=== PATIENT | male | born 1960 | race Caucasian/White ===

== ENCOUNTER 2020-07-28 06:52 | Outpatient (CLI) | payer OTHER, SELFPAY ==
[2020-07-28 07:52] LABS: Anion Gap 9 mmol/L (8-16); Blood Urea Nitrogen 14 mg/dL (9-20); Calcium 9.3 mg/dL (8.4-10.2); Carbon Dioxide 30 mmol/L (22-30); Chloride 101 mmol/L (98-107); Cholesterol 219 mg/dL (0-200); Estimated Glomerular Filt Rate > 60; Glucose 111 mg/dL (75-110); HDL Direct 29 mg/dL; Potassium 3.7 mmol/L (3.4-5.0); Sodium 140 mmol/L (137-145); Triglycerides 199 mg/dL (<150)
[2020-07-28 08:03] LABS: LDL Cholesterol Direct 154 mg/dL
[2020-07-28 08:23] LABS: Prostate Specific Antigen 3.5 ng/mL (< OR = 4.0); Thyroid Stimulating Hormone 0.685 uIU/mL (0.465-4.680)
[2020-07-28 08:59] LABS: Basophils Absolute Auto 0.1 K/mm3 (0.0-0.1); Basophils Percent Auto 0.6 % (0.2-1.2); Eosinophils Absolute Auto 0.3 K/mm3 (0-0.3); Eosinophils Percent Auto 2.8 % (0-4.4); Hematocrit 48.1 % (42.0-52.0); Hemoglobin 16.2 g/dL (14.0-18.0); Immature Granulocyte Absolute 0.08 K/mm3 (0.00-0.031); Immature Granulocyte Percent A 0.9 % (0-0.5); Lymphocytes Absolute Auto 2.76 K/mm3 (0.9-3.2); Lymphocytes Percent Auto 29.6 % (18.3-44.2); Mean Corpuscular HGB Conc 33.7 g/dl (32-36); Mean Corpuscular Hemoglobin 29.6 pg (26-34); Mean Corpuscular Volume 87.9 fl (80-100); Mean Platelet Volume 10.4 fl (7.4-10.4); Monocytes Absolute Auto 0.8 K/mm3 (0.1-0.6); Monocytes Percent Auto 8.6 % (2.6-8.5); Neutrophils Absolute Auto 5.4 K/mm3 (1.3-6.7); Neutrophils Percent Auto 57.5 % (45.5-73.1); Platelet Count Result 268 k/mm3 (150-375); Red Blood Count 5.47 M/mm3 (4.6-6.20); Red Cell Distribution Width 12.4 % (11.5-14.5); White Blood Count 9.3 K/mm3 (4.5-10.0)
== END 2020-07-28 06:53 | disposition home or self-care (01) ==
LOC: ANHLAB 06:56
PROVIDERS: PCP Family Medicine; Visit Provider Family Medicine
DX: Z13.220 Encounter for screening for lipoid disorders (principal); I10 Essential (primary) hypertension; Z12.5 Encounter for screening for malignant neoplasm of prostate
CPT/HCPCS: 36415; 80048; 80061; 84153; 84443; 85025; G0103

== ENCOUNTER 2020-09-24 00:36 | Outpatient (CLI) | payer OTHER, SELFPAY ==
[2020-09-24 20:15] LABS: SARS-CoV-2 RNA PCR Negative
== END 2020-09-24 00:37 | disposition home or self-care (01) ==
LOC: ANHCOVIDDT 00:36
PROVIDERS: PCP Family Medicine; Visit Provider Internal Medicine Gastroenterology
DX: Z01.818 Encounter for other preprocedural examination (principal); Z20.828 Contact with and (suspected) exposure to other viral communicable diseases
CPT/HCPCS: 87635; C9803; U0003

== ENCOUNTER 2020-09-27 01:25 | Day surgery (SDC) | payer OTHER, SELFPAY ==
[2020-09-21 11:36] VITALS: BMI 30.4
[2020-09-27 08:00] VITALS: BP 137/85; PULSE 88; RESP 16; TEMP 36.3; O2SAT 97
[2020-09-27] MEDS: LACTATED RINGERS 1,000 ML 150 ML IV CONT (08:16)
--- NOTE | 2020-09-27 08:48 | WPDANESEPPF ---
Anes - Initial Pre Proc Eval Procedure: Operation Date: 09/27/20 09:30 Proposed Procedures p Screening Colonoscopy - Harsh Gonzales MD Date/Time: 09/27/20 08:48 Surgeon: Harsh Gonzales MD Pre Op Diagnosis: neoplasm screening Patient Data Age: 59 Gender: M Height: 5 ft 8 in Weight: 88 kg Last Vital Signs Temp 36.3 C L 09/27/20 08:00 Pulse 88 09/27/20 08:00 Resp 16 09/27/20 08:00 BP 137/85 09/27/20 08:00 Pulse Ox 97 09/27/20 08:00 Allergies Allergy/AdvReac Type Severity Reaction Status Date / Time No Known Allergies Allergy Verified 09/27/20 07:57 Home Medications Medication Instructions Recorded Confirmed Type amlodipine 5 mg tablet 5 mg PO DAILY #90 tablet 09/13/20 09/21/20 Rx lisinopril 10 mg tablet 10 mg PO DAILY #90 tablet 09/13/20 09/21/20 Rx rosuvastatin 20 mg tablet 20 mg PO DAILY #90 tablet 09/13/20 09/21/20 Rx Patient hx anesthesia problems: none Family hx anesthesia problems: none PMFSH Past Medical History Medical History BMI 29.0-29.9,adult Essential (primary) hypertension Screen for colon cancer Screening for lipid disorders Screening for prostate cancer Family History Family History Other Heart disease Social History Social History Smoking packs per day: 1 Smoking cigarettes per day: 20.0 Years smoked: 15 Smoking pack-years: 15.00 Smoking status: Never smoker Tobacco type: cigarettes Alcohol intake: never Substance use type: does not use Living arrangements: alone Spiritual care concerns: No Anes - Eval Final PreProcedure Day of Procedure 09/27/20 08:48 Patient weight: normal Heart: regular rate and rhythm Lungs: clear to auscultation Airway: Mallampati scale class II Neurological: alert and oriented Last oral intake: >/= 8 hours ASA classification: II Emergent: no Anesthetic plan: proceed Anesthesia type and monitoring: general GIVS and standard monitoring Informed Consent: The patient's anesthetic plan and its attendant risks and benefits were discussed with the patient/family/POA. Questions were solicited and answers provided to the satisfaction of the patient/family/POA.
--- NOTE | 2020-09-27 08:58 | PM.HPGS ---
History of Present Illness History of Present Illness Consent: Risks, benefits, and alternatives have been discussed and questions answered. Patient agrees to proceed with procedure. Chief complaint: neoplasm screening Narrative: Pollo Juan is a 59 year old male here for first screening colonoscopy Review of Systems Constitutional: Constitutional: Denies headache(s) and Denies weakness Eyes: Eyes: Denies blurry vision ENT: Reports Normal hearing present, Denies headache(s) and Denies neck pain Cardiovascular: Cardiovascular: Denies chest pain and Denies dyspnea Respiratory: Respiratory: Denies dyspnea Gastrointestinal: Gastrointestinal: Reports no additional gastrointestinal complaints Genitourinary: Genitourinary: Denies dysuria Musculoskeletal: Musculoskeletal: Denies neck pain Integumentary/Breasts: Skin/Breast: Denies dry skin Neurologic: Reports Normal hearing present, Denies headache(s) and Denies weakness Psychiatric: Psychiatric: Denies anxiety Endocrine: Endocrine: Denies change in body appearance Hematologic/Lymphatic: Hematologic/Lymphatic: Denies easy bleeding Allergic/Immunologic: Allergic/Immunologic: Denies urticaria PMF Past Medical History Medical History BMI 29.0-29.9,adult Essential (primary) hypertension Screen for colon cancer Screening for lipid disorders Screening for prostate cancer Family History Family History Other Heart disease Social History Social History Smoking packs per day: 1 Smoking cigarettes per day: 20.0 Years smoked: 15 Smoking pack-years: 15.00 Smoking status: Never smoker Tobacco type: cigarettes Alcohol intake: never Substance use type: does not use Living arrangements: alone Spiritual care concerns: No Meds Home Medications and Allergies Home Medications Medication Instructions Recorded Confirmed Type amlodipine 5 mg tablet 5 mg PO DAILY #90 tablet 09/13/20 09/21/20 Rx lisinopril 10 mg tablet 10 mg PO DAILY #90 tablet 09/13/20 09/21/20 Rx rosuvastatin 20 mg tablet 20 mg PO DAILY #90 tablet 09/13/20 09/21/20 Rx Allergies Allergy/AdvReac Type Severity Reaction Status Date / Time No Known Allergies Allergy Verified 09/27/20 07:57 Vital Signs Vital Signs - 24 hr 09/27/20 08:00 Temperature 97.4 F L Pulse Rate 88 Respiratory Rate 16 Blood Pressure 137/85 Pulse Oximetry 97 Exam Const: General: comfortable and no acute distress HENMT: General nose exam: Normal nares present Eyes: General: appearance normal, both eyes and all related structures Neck: Neck: no JVD Resp: Auscultation: clear to auscultation bilaterally Cardio: Rate: regular rate Rhythm: regular rhythm GI: Inspection: non-distended GI Palp: Yes Soft to palpation Skin: General skin exam: normal color Neuro: General: gait normal Speech: normal speech Extrem: General: normal to inspection Psych: Mental Status: mental status grossly normal Assessment and Plan Assessment and plan (1) Screen for colon cancer: Code(s): Z12.11 - Encounter for screening for malignant neoplasm of colon Status: Acute Assessment and Plan: will proceed with colonoscopy
[2020-09-27 09:27] VITALS: BP 125/81; PULSE 84; RESP 18; O2SAT 98
[2020-09-27 09:37] VITALS: BP 118/80; PULSE 72; RESP 15; O2SAT 97
[2020-09-27 09:47] VITALS: BP 130/82; PULSE 76; RESP 21; O2SAT 98
== END 2020-09-27 09:57 | disposition home or self-care (01) ==
PROVIDERS: PCP Family Medicine; Visit Provider Internal Medicine Gastroenterology
PROC: 0DJD8ZZ Inspection of Lower Intestinal Tract, Via Natural or Artificial Opening Endoscopic (ICD-10-PCS; CPT 45378; principal; 2020-09-27 09:30)
DX: Z12.11 Encounter for screening for malignant neoplasm of colon (principal); K63.5 Polyp of colon; D12.2 Benign neoplasm of ascending colon; D12.4 Benign neoplasm of descending colon; K62.1 Rectal polyp; K57.30 Diverticulosis of large intestine without perforation or abscess without bleeding; K64.8 Other hemorrhoids
CPT/HCPCS: 45385; 87635; 88305; C9803; J2704; J7120; U0003

== ENCOUNTER 2023-12-11 12:29 | Outpatient (CLI) | payer OTHER, SELFPAY ==
--- NOTE | ~2023-12-11 | CT_ITS ---
EXAMINATION: CT abdomen pelvis wo con DATE: 12/11/2023 12:46 INDICATION: Inflammatory disease of the prostate TECHNIQUE: Computed tomography (CT) of the abdomen and pelvis was performed without intravenous contr ast. The dose-length product (DLP) was 594.17 mGy-cm. Automated exposure control and iterative recons truction technique were employed. COMPARISON: None FINDINGS: There is a 5 mm nodule in the right middle. There is a 5 mm nodule in the right lower lobe. There is a small sliding hiatal hernia. Subendocardial fat deposition in the interventricular septum could reflect prior myocardial infarction. The liver, pancreas, gallbladder, and adrenal glands are normal. Punctate calcifications in an otherwise normal spleen likely represent healed granulomatous d isease. The kidneys are unremarkable. No pathologically enlarged abdominal or pelvic lymph nodes are identified. No free intraperitoneal gas or evidence of bowel obstruction. There is hazy infiltration of the fat of the small bowel mesentery which can be seen in the setting of sclerosing mesenteritis. Colonic diverticulosis is present without evidence of diverticulitis. The appendix is normal. There a re multiple (greater than 20) stones in the urinary bladder. There are bilateral inguinal hernias con taining fat. Calcifications are noted in the prostate. There is mild lumbar spondylosis. There is pa rtial fusion of the bilateral sacroiliac joints. IMPRESSION: 1. Greater than 20 stones in the urinary bladder. Reviewed, dictated and finalized at location F. [facility]NA[facility]
== END 2023-12-11 12:30 | disposition home or self-care (01) ==
PROVIDERS: PCP Family Medicine; Visit Provider Nurse Practitioner Adult Health
DX: N41.9 Inflammatory disease of prostate, unspecified (principal); N21.0 Calculus in bladder
CPT/HCPCS: 74176

== ENCOUNTER 2024-01-02 07:53 | Outpatient (CLI) | payer OTHER, SELFPAY ==
--- NOTE | 2024-01-02 08:04 | ECG_ITS ---
Measurements Intervals [place] Rate: 72 P: 47 WV: 147 QRS: -2 QRSD: 94 T: 30 QT: 382 QTc: 420 Interpretive Statements SINUS RHYTHM BORDERLINE R WAVE PROGRESSION, ANTERIOR LEADS BASELINE ARTIFACT- I, II, III, AVR, AVL, AVF BORDERLINE ECG NO PREVIOUS ECG AVAILABLE FOR COMPARISON Electronically Signed On 01-02-2024 8:16:11 CDT by Gerson Raphael D.O.
== END 2024-01-02 07:54 | disposition home or self-care (01) ==
LOC: ANHSURGERY 07:56
PROVIDERS: PCP Family Medicine; Visit Provider Urology
DX: I10 Essential (primary) hypertension (principal); Z01.818 Encounter for other preprocedural examination; R94.31 Abnormal electrocardiogram [ECG] [EKG]
CPT/HCPCS: 93005

== ENCOUNTER 2024-01-07 02:13 | Day surgery (SDC) | payer OTHER, SELFPAY ==
--- NOTE | 2024-01-01 15:19 | PC.NURSE ---
Report to the Outpatient Waiting Room, entrance under the green pavilion located off [facility], at time __0600 on date _01/07/24 . Planned Procedure Time: _07 . Time changes happen often and if your time is changed the preop area will call you the afternoon before. - You and your visitor will be asked to self-screen and do not enter if you have any COVID symptoms. - A mask is optional within the hospital at this time. Patients may have clear liquids (water, carbonated beverages, clear teas, apple juice) until 3 hours prior to surgery(4:30 AM) with a maximum of 20 ounces. - No food from midnight until time of surgery - Infants may have breast milk until 4 hours before surgery, infant formula 6 hours prior to surgery. - Children will be allowed to drink immediately following surgery. If applicable, please bring a bottle or sippy cup to assist with drinking. Juice, water, soda, and popsicles are readily available. For infants on formula, please bring formula the day of surgery. Pacifiers are allowed. Take the following medications with a SIP of water the morning of surgery: __AMLODIPINE DO NOT STOP ANY OF YOUR OTHER PRESCRIPTION MEDICATIONS PRIOR TO SURGERY ?EXCEPT THE FOLLOWING Medications to discontinue per physician NONE Please no make-up, nail filipino, hairspray, perfume, deodorant, or body powder the day of surgery. No jewelry (including any body piercings) or valuables the day of surgery, leave them at home. Please take a shower or bath the night before, or the morning of, surgery with an antibacterial soap. Wear comfortable, loose fitting clothing. Children are encouraged to wear pajamas. - Jewelry must be removed prior to entering the operating room. Rings and piercings that are not removed may be cut off. - The hospital will not accept responsibility for valuables. - Please leave all valuables, including medications, at home the day of surgery. If you are going home after surgery, a licensed car pick up driver must drive you home. - NO public transportation without another adult if you receive anesthesia. - We recommend that an adult stay with you for 24 hours following discharge. - We also recommend that you do not drive, make important decision, drink alcoholic beverages, or take any drugs that were not prescribed by your health care provider for at least 24 hours after your discharge time. Follow any additional instructions given to you from your surgeon. If you or anyone in your household have experienced Covid symptoms in the past week, please notify your surgeon or the nurse liaison at the phone number below for possible testing. Telephone instructions given to __PATIENT and asked if any additional questions and then verbalized understanding. Patient advised to call surgeon office or pre surgery nurse liaison [phone] if any additional questions.
[2024-01-01 15:27] VITALS: BMI 30.9
[2024-01-07] VITALS (11 sets, daily range): BP systolic 117–135; BP diastolic 73–85; PULSE 69–88; RESP 12–16; TEMP 36.6–36.8; O2SAT 93–100; BMI 30.9
[2024-01-07] MEDS: LACTATED RINGERS 1,000 ML 30 ML IV CONT ×2 (06:35→09:58)
--- NOTE | 2024-01-07 07:10 | WPDANESEPPF ---
Anes - Initial Pre Proc Eval Procedure: Operation Date: 01/07/24 07:30 Proposed Procedures p Cystoscopy, Holmium Laser Bladder Stones - Jamey Boone MD Date/Time: 01/07/24 07:10 Surgeon: Jamey Boone MD Pre Op Diagnosis: Bladder Stones Patient Data Age: 63 Gender: M Height: 1.71 m Weight: 91.1 kg Last Vital Signs Temp 36.8 C 01/07/24 06:00 Pulse 69 01/07/24 06:00 Resp 16 01/07/24 06:00 BP 128/73 01/07/24 06:00 Pulse Ox 98 01/07/24 06:00 O2 Del Method Room Air 01/07/24 06:00 Allergies Allergy/AdvReac Type Severity Reaction Status Date / Time No Known Allergies Allergy Verified 01/07/24 06:26 Home Medications Medication Instructions Recorded Confirmed Type amlodipine 5 mg tablet 5 mg PO DAILY #90 tabs 03/14/23 01/01/24 Rx finasteride 5 mg tablet (Proscar) 5 mg PO DAILY #90 tabs 11/28/23 01/01/24 Rx lisinopril 10 mg tablet See Rx Instructions .Route 12/03/23 01/01/24 Rx .COMPLEX #90 tabs rosuvastatin 20 mg tablet See Rx Instructions .Route 12/03/23 01/01/24 Rx .COMPLEX #90 tabs tamsulosin 0.4 mg capsule 0.4 mg PO EVERY OTHER DAY 01/01/24 01/01/24 History Patient hx anesthesia problems: none Family hx anesthesia problems: none Results Review: All pre-operative results and documents have been reviewed as part of the pre-operative evaluation. [facility] Past Medical History Medical History Bladder stones BMI 29.0-29.9,adult BMI 31.0-31.9,adult BMI 32.0-32.9,adult BPH loc w urin obs/LUTS Essential (primary) hypertension Microhematuria Screen for colon cancer Screening for lipid disorders Screening for prostate cancer Family History Family History Father No problems noted. Mother No problems noted. Sibling No problems noted. Other Heart disease Social History Social History Smoking packs per day: 1 Smoking cigarettes per day: 20.0 Years smoked: 15 Smoking pack-years: 15.00 Smoking status: Former smoker Tobacco type: cigarettes Second hand tobacco smoke exposure: Yes Smoking end date: 10/14/98 Alcohol intake: never Substance use: never Substance use type: does not use Lack of Transportation: No Lack of Food: Never True Current Housing: I Have Housing Concerned About Future Housing: No Difficulty Paying Gas/Electric Bills: No Difficulty Paying for Meds: No Currently Unemployed: No Education: High School Diploma/GED Difficulty w/ Childcare or Family Care: No Living arrangements: with family Occupation/Education: retired Additional occupation/education comments: [employer] Gender identity (if verbalized by the patient): Male Spiritual care concerns: No Anes - Eval Final PreProcedure Day of Procedure 01/07/24 07:10 Patient weight: obese Heart: regular rate and rhythm Lungs: clear to auscultation Airway: Mallampati scale class II Neurological: alert and oriented Last oral intake: >/= 8 hours ASA classification: III Emergent: no Anesthetic plan: proceed Anesthesia type and monitoring: general LMA and standard monitoring Results Review: All pre-operative results and documents have been reviewed as part of the pre-operative evaluation. Informed Consent: The patient's anesthetic plan and its attendant risks and benefits were discussed with the patient/family/POA. Questions were solicited and answers provided to the satisfaction of the patient/family/POA.
--- NOTE | 2024-01-07 07:15 | WPDHPUPDATE1 ---
History and Physical Update Update Date/Time: 01/07/24 07:15 History and Physical has been reviewed, including an updated exam of the patient. There are NO changes in the patient's condition. Risks, benefits, and alternatives have been discussed and questions answered. Patient agrees to proceed with procedure. Proceed with cysto, laser of bladder stones
[2024-01-07] MEDS: ceFAZolin 2 GM/D5W 50 ML 2 GM/50 ML BAG IVPB (07:20)
[2024-01-07] MEDS: LIDOCAINE HCL 2% GEL UROJET 10 ML PKG MUCOUS MEM (07:46)
--- NOTE | 2024-01-07 09:53 | W.PM.PROC2 ---
Procedure Note - Detailed Date of Procedure 01/07/24 Pre-op Diagnosis Bladder [id number] Post-op Diagnosis Same Procedure Performed Cystoscopy with holmium laser of bladder stones extensive. Complex Jenkins catheter placement Surgeon Jamey Boone MD Anesthesia General Description of Procedure Patient is taken to the operative suite correctly identified. Once anesthesia was obtained was placed in dorsal lithotomy position prepped and draped usual sterile fashion. Twenty-two Portuguese scope was inserted in the bladder. He has a very high ridge to get into the bladder. Once in the bladder he has approximately 15-20 stones. Using a 550 micron fiber we dusted the stones were retrieved the pieces and sent them for analysis. Reinspection revealed no significant stone burden left. Since there was quite a bit of torquing of the scope he did lose a little from the bladder neck area. 2% viscous lidocaine was inserted into the urethra. Eight[address] was placed with 10 cc in the balloon. This was connected to continuous bladder irrigation and is taken recovery stable condition. That will be weaned to off and be discharged home with a Jenkins catheter to be removed on . This completes dictation on this patient. Please send a copy of op note to my office. Estimated Blood Loss 25 Drains Yes Packing No Pathology Yes Complications No immediate complications Condition Stable Disposition PACU
== END 2024-01-07 13:30 | disposition home or self-care (01) ==
PROVIDERS: PCP Family Medicine; Visit Provider Urology
PROC: (CPT 52352; principal; 2024-01-07 07:30)
DX: N21.0 Calculus in bladder (principal); I10 Essential (primary) hypertension; N40.1 Benign prostatic hyperplasia with lower urinary tract symptoms; E66.9 Obesity, unspecified; Z68.31 Body mass index [BMI] 31.0-31.9, adult; Z87.891 Personal history of nicotine dependence; Z82.49 Family history of ischemic heart disease and other diseases of the circulatory system
CPT/HCPCS: 52318; 82365; 88300; C1758; C1769; J0690; J1100; J2250; J2405; J2704; J3010; J7120